=== PATIENT | male | born 1960 | race Caucasian/White ===

== ENCOUNTER 2020-01-13 18:23 | Emergency (ER) | payer BC ==
[2020-01-13] MEDS ORDERED: Ondansetron 4 MG/2 ML SDV IVPUSH ONE (18:27)
[2020-01-13] MEDS: HYDROmorphone 2 MG/ML SDV IVPUSH PRN ×2 (18:34→20:30)
[2020-01-13] MEDS ORDERED: HYDROmorphone 2 MG/ML SDV ONE (18:40)
[2020-01-13] MEDS ORDERED: Ondansetron 4 MG/2 ML SDV ONE (18:40)
[2020-01-13] MEDS ORDERED: Lactated Ringers 2,000 ML IV ONE (18:44)
--- NOTE | 2020-01-13 18:44 | EDM.PDOC ---
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 He denies any surgeries except for "a double hernia repair" as a child. This has not given him any discomfort throughout his entire life. He states that he has had trouble with perceived constipation over the last few days. About 3 hours prior to arrival, he had the gradual onset of increasing abdominal cramps localized inferior to his umbilicus. Finally he noticed that his abdomen was a bit distended, and he had pretty significant nausea with retching but no vomiting. He denies any melena or hematochezia. He has not had prior issues with urinating. He denies any chest pain or shortness of breath. - Related Data Allergies Allergy/AdvReac Type Severity Reaction Status Date / Time No Known Allergies Allergy Verified 01/13/20 19:03 ED ROS GENERAL - Review of Systems Review Of Systems: Comprehensive ROS is negative, except as noted in HPI. ED EXAM, GENERAL - Physical Exam Exam: See Below Exam Limited By: No Limitations General Appearance: Alert, WD/WN, Moderate Distress Eye Exam: Bilateral Eye: EOMI, Normal Inspection Ears: Hearing Grossly Normal Nose: Normal Inspection, Normal Mucosa Throat/Mouth: Normal Inspection, Normal Voice, No Airway Compromise Head: Atraumatic, Normocephalic Neck: Normal Inspection, Supple, Non-Tender, Full Range of Motion Respiratory/Chest: No Respiratory Distress, Lungs Clear, Normal Breath Sounds Cardiovascular: Regular Rate, Rhythm, No Murmur GI/Abdominal: Guarding, Abnormal Bowel Sounds (Very hypoactive). No: Rebound (Male) Exam: No Hernia, Scrotal Swelling, Testicular Tenderness (L) (unable to reduce with open book technique. Negative Prehn's sign). No: Cremasteric Reflex, Inguinal Lymphadenopathy Back Exam: No: CVA Tenderness (R), CVA Tenderness (L) Extremities: Normal Range of Motion, Normal Capillary Refill Neurological: Alert, Oriented Course - Vital Signs Text/Narrative:: Called and discussed case with [facility], and unfortunately they do not have urology available for tonight. Called [facility] and they were kind enough to arrange for an ultrasound through the ER and definitive care as needed. Risks and benefits were discussed with the patient and at this point certainly we need to rule out testicular torsion before anything else but he was provided with a dose of Levaquin in case this is more of an infectious process. Last Recorded V/S: Last Vital Signs Temp 98.4 F 01/13/20 18:56 Pulse 96 01/13/20 19:58 Resp 16 01/13/20 19:58 BP 128/80 01/13/20 19:58 Pulse Ox 96 01/13/20 19:58 - Orders/Labs/Meds Orders: Active Orders 24 hr Category Date Time Status Bladder Scan [RC] ASDIRECTED Care 01/13/20 18:41 Active EKG Documentation Completion [RC] ASDIRECTED Care 01/13/20 18:41 Active Abdomen Pelvis wo Cont [CT] Stat Exams 01/13/20 18:40 Taken UA RFX ROJAS AND CULT IF INDIC [URIN] Stat Lab 01/13/20 18:41 Ordered HYDROmorphone [Dilaudid] Med 01/13/20 18:38 Active 1 mg IVPUSH Q15M PRN Lactated Ringers [Ringers, Lactated] 2,000 ml Med 01/13/20 18:44 Active IV BOLUS Levofloxacin/Dextrose 5%-Water [Levaquin in D5W 500 MG/ Med 01/13/20 19:29 Active 100 ML] 500 mg Premix Bag 1 bag IV ONETIME Medication Orders Hydromorphone HCl (Dilaudid) 1 mg IVPUSH Q15M PRN PRN Reason: Pain Last Admin: 01/13/20 18:34 Dose: 1 mg Lactated Ringer's (Ringers, Lactated) 2,000 mls @ 999 mls/hr IV BOLUS ONE Stop: 01/13/20 20:44 Last Admin: 01/13/20 19:57 Dose: 999 mls/hr Levofloxacin/Dextrose 500 mg/ (Premix) 100 mls @ 100 mls/hr IV ONETIME ONE Stop: 01/13/20 20:28 Last Admin: 01/13/20 19:56 Dose: 100 mls/hr Labs: Laboratory Tests 01/13/20 01/13/20 01/13/20 Range/Units 19:05 19:05 19:05 WBC 21.7 H* (4.0-11.0) K/uL RBC 4.70 (4.50-6.50) M/uL Hgb 14.6 (13.0-18.0) g/dL Hct 42.8 (40.0-54.0) % MCV 91 (76-96) fL MCH 31.1 (27.0-32.0) pg MCHC 34.1 (31.0-35.0) g/dL RDW 15.4 (11.0-16.0) % Plt Count 300 (150-400) K/uL MPV 10.4 H (6.0-10.0) fL Add Manual Diff Yes Neutrophils % (Manual) 84.0 H (45.0-70.0) % Band Neutrophils % 5.0 % Lymphocytes % (Manual) 3.0 L (20.0-40.0) % Monocytes % (Manual) 8.0 (3.0-10.0) % Platelet Estimate Adequate Sodium (136-145) mmol/L Potassium (3.5-5.1) mmol/L Chloride (98-107) mmol/L Carbon Dioxide (21.0-32.0) mmol/L Anion Gap (5.0-15.0) mmol/L BUN (8-26) mg/dL Creatinine (0.70-1.30) mg/dL Est Cr Clr Drug Dosing mL/min Estimated GFR (MDRD) (>60) MLS/MIN BUN/Creatinine Ratio (6-25) Glucose (74-100) mg/dL Lactic Acid 1.7 (0.4-2.0) mmol/L Calcium (8.5-10.1) mg/dL Total Bilirubin (0.0-1.0) mg/dL AST (15-37) U/L ALT (12-78) U/L Alkaline Phosphatase (46-116) U/L Troponin I (0.000-0.060) ng/mL C-Reactive Protein (0.0-3.0) mg/L Total Protein (6.4-8.2) g/dL Albumin (3.4-5.0) g/dL Globulin (2.2-4.2) g/dL Albumin/Globulin Ratio (0.8-2.0) Amylase 35 (25-115) U/L Lipase 186 (73-393) U/L 01/13/20 Range/Units 19:05 WBC (4.0-11.0) K/uL RBC (4.50-6.50) M/uL Hgb (13.0-18.0) g/dL Hct (40.0-54.0) % MCV (76-96) fL MCH (27.0-32.0) pg MCHC (31.0-35.0) g/dL RDW (11.0-16.0) % Plt Count (150-400) K/uL MPV (6.0-10.0) fL Add Manual Diff Neutrophils % (Manual) (45.0-70.0) % Band Neutrophils % % Lymphocytes % (Manual) (20.0-40.0) % Monocytes % (Manual) (3.0-10.0) % Platelet Estimate Sodium 144 (136-145) mmol/L Potassium 3.6 (3.5-5.1) mmol/L Chloride 105 (98-107) mmol/L Carbon Dioxide 26.0 (21.0-32.0) mmol/L Anion Gap 16.6 H (5.0-15.0) mmol/L BUN 11 (8-26) mg/dL Creatinine 0.82 (0.70-1.30) mg/dL Est Cr Clr Drug Dosing 99.22 mL/min Estimated GFR (MDRD) > 60 (>60) MLS/MIN BUN/Creatinine Ratio 13.4 (6-25) Glucose 146 H (74-100) mg/dL Lactic Acid (0.4-2.0) mmol/L Calcium 8.9 (8.5-10.1) mg/dL Total Bilirubin 0.7 (0.0-1.0) mg/dL AST 15 (15-37) U/L ALT 37 (12-78) U/L Alkaline Phosphatase 70 (46-116) U/L Troponin I < 0.017 (0.000-0.060) ng/mL C-Reactive Protein 27.5 H (0.0-3.0) mg/L Total Protein 7.5 (6.4-8.2) g/dL Albumin 3.6 (3.4-5.0) g/dL Globulin 3.9 (2.2-4.2) g/dL Albumin/Globulin Ratio 0.9 (0.8-2.0) Amylase (25-115) U/L Lipase (73-393) U/L Meds: Medications Generic Name Dose Route Start Last Admin Trade Name Freq PRN Reason Stop Dose Admin Hydromorphone HCl 1 mg 01/13/20 18:38 01/13/20 18:34 Dilaudid IVPUSH 1 mg Q15M PRN Administration Pain Lactated Ringer's 2,000 mls @ 999 mls/hr 01/13/20 18:44 01/13/20 19:57 Ringers, Lactated IV 01/13/20 20:44 999 mls/hr BOLUS ONE Administration Levofloxacin/Dextrose 500 mg/ 100 mls @ 100 mls/hr 01/13/20 19:29 01/13/20 19 :56 Premix IV 01/13/20 20:28 100 mls/hr ONETIME ONE Administration Discontinued Medications Generic Name Dose Route Start Last Admin Trade Name Freq PRN Reason Stop Dose Admin Hydromorphone HCl Confirm 01/13/20 18:40 01/13/20 18:53 Dilaudid Administered 01/13/20 18:41 Not Given Dose 2 mg .ROUTE .STK-MED ONE Ondansetron HCl Confirm 01/13/20 18:40 01/13/20 18:53 Zofran Administered 01/13/20 18:41 Not Given Dose 4 mg .ROUTE .STK-MED ONE Ondansetron HCl 4 mg 01/13/20 18:27 01/13/20 18:35 Zofran IVPUSH 01/13/20 18:28 4 mg ONETIME ONE Administration Departure - Departure Time of Disposition: 07:45 Disposition: DC/Tfer to Acute Hospital 02 Condition: Undetermined Clinical Impression: Testicular/scrotal pain - Discharge Information Referrals: PCP,None [Primary Care Provider] - Sepsis Event Note - Focused Exam Vital Signs: Vital Signs Temp Pulse Resp BP Pulse Ox 01/13/20 19:58 96 16 128/80 96 01/13/20 18:56 98.4 F 96 16 183/96 H 97 Date Exam was Performed: 01/13/20 Time Exam was Performed: 20:14 - My Orders Last 24 Hours: My Active Orders 01/13/20 18:38 HYDROmorphone [Dilaudid] 1 mg IVPUSH Q15M PRN 01/13/20 18:40 Abdomen Pelvis wo Cont [CT] Stat 01/13/20 18:41 Bladder Scan [RC] ASDIRECTED EKG Documentation Completion [RC] ASDIRECTED UA RFX ROJAS AND CULT IF INDIC [URIN] Stat 01/13/20 18:44 Lactated Ringers [Ringers, Lactated] 2,000 ml IV BOLUS 01/13/20 19:29 Levofloxacin/Dextrose 5%-Water [Levaquin in D5W 500 MG/100 ML] 500 mg Premix Bag 1 bag IV ONETIME - Assessment/Plan Last 24 Hours: My Active Orders 01/13/20 18:38 HYDROmorphone [Dilaudid] 1 mg IVPUSH Q15M PRN 01/13/20 18:40 Abdomen Pelvis wo Cont [CT] Stat 01/13/20 18:41 Bladder Scan [RC] ASDIRECTED EKG Documentation Completion [RC] ASDIRECTED UA RFX ROJAS AND CULT IF INDIC [URIN] Stat 01/13/20 18:44 Lactated Ringers [Ringers, Lactated] 2,000 ml IV BOLUS 01/13/20 19:29 Levofloxacin/Dextrose 5%-Water [Levaquin in D5W 500 MG/100 ML] 500 mg Premix Bag 1 bag IV ONETIME
[2020-01-13] MEDS ORDERED: Levofloxacin/Dextrose 5%-Water 500 MG in Premix Bag 1 BAG IV ONE (19:29)
--- NOTE | 2020-01-14 07:23 | CT ---
DATE OF SERVICE: 01/13/20 CLINICAL DATA: lower abdominal cramping UNENHANCED ABDOMEN AND PELVIC CT: Multislice acquisition through the abdomen and pelvis without IV or oral contrast was performed. No priors. There are atelectatic changes noted in the dependent portion of both lower lungs. The lung bases are otherwise clear. The heart size is normal. No pericardial effusion. There is gas noted within the distal esophagus most likely related to GE reflux. There is diffuse fatty infiltration of the liver. No focal hepatic lesions. The gallbladder appears normal. No calcified gallstones. The spleen appears normal. The pancreas appears normal. The right and left adrenals appear normal. There is a 1.8 cm low density lesion in the left adrenal which is most likely benign. The right and left adrenals otherwise appear normal. The right and left kidneys appear normal. No nephrocalcinosis or nephrolithiasis. No hydronephrosis or hydroureter. The patient is status post right total hip arthroplasty. This does produce beam -hardening and streak artifact obscuring adjacent structures. The bladder is partially fluid-filled. It appears grossly normal. The prostate is mildly enlarged. The appendix is not dilated. No evidence of appendicitis. There is diverticulosis of the transverse, descending, and sigmoid colon. No evidence of diverticulitis. There is a fat-containing umbilical hernia. No free air. No free fluid. No dilated loops of bowel. No adenopathy. No aortic aneurysm. The left spermatic cord is mildly prominent compared to the right. Significance uncertain. There is degenerative disc disease at multiple levels in the lower thoracic and lumbar spine. There is slight retrolisthesis of L5 on S1. No other significant findings. [id number] [facility]
== END 2020-01-13 21:00 ==
LOC: LB.ED 18:23
DX: N50.82 Scrotal pain (principal); N50.812 Left testicular pain
CPT/HCPCS: 36415; 51798; 74176; 80053; 82150; 83605; 83690; 84484; 85025; 86140; 93005; 96365; 96375; 99284; 99285-25; J1170; J1956; J2405; J7120